=== PATIENT | male | born 1995 | race Caucasian/White ===

== ENCOUNTER 2020-07-27 17:38 | Emergency (ER) | payer OTHER ==
[~2020-07-27] VITALS: Ht 165.1 cm; Wt 73.0 kg
[2020-07-27 17:50] VITALS: Ht 165.1 cm; Wt 73.0 kg
[2020-07-27 19:01] LABS: BASOPHIL % 1.9 % (0.2-1.5); PLATELET COUNT 205 x10^3mcL (152-348); RED CELL DISTRIBUTION WIDTH 12.9 % (12.1-16.2)
[2020-07-27 19:20] LABS: microscopic required? NO
[2020-07-27 19:34] LABS: UA SPECIFIC GRAVITY 1.015 (1.005-1.035); urine erythrocyte NEGATIVE (NEGATIVE)
[2020-07-27 19:35] LABS: CALCIUM 9.4 mg/dL (8.5-10.1); CARBON DIOXIDE 29.3 mmol/L (21-32); CHLORIDE SERUM 102 mmol/L (98-107); GFR1 > 60 mL/min; GLUCOSE SERUM 99 mg/dL (74-106); SODIUM SERUM 139 mmol/L (136-145)
[2020-07-27 19:39] LABS: ALBUMIN 4.3 g/dL (3.4-5.0); ALKALINE PHOSPHATASE 98 U/L (46-116); ALT/SGPT 147 U/L (16-63); AST/SGOT 45 U/L (15-37); BILIRUBIN TOTAL 0.22 mg/dL (0.20-1.00)
[2020-07-27 19:41] LABS: TOTAL PROTEIN, SERUM 8.4 g/dL (6.4-8.2)
[2020-07-27 20:36] VITALS: BP 135/90
== END 2020-07-27 20:20 | disposition home or self-care (01) ==
LOC: ED 17:38
PROVIDERS: Emergency Medicine
DX: A08.4 Viral intestinal infection, unspecified (principal); Z20.822 Contact with and (suspected) exposure to COVID-19
CPT/HCPCS: U0003